=== PATIENT | male | born 1970 ===

== ENCOUNTER 2019-12-27 10:48 | Emergency (ER) | payer MEDICAID ==
[~2019-12-27] VITALS: Ht 167.6 cm; Wt 62.3 kg
[2019-12-27 11:34] LABS: GLUCOSE,POINT OF CARE 84 MG/DL (70-110)
[2019-12-27 11:38] VITALS: BP 106/66
== END 2019-12-27 12:10 | disposition home or self-care (01) ==
LOC: EMS 10:49
DX: G89.29 Other chronic pain (principal); M25.512 Pain in left shoulder; E11.9 Type 2 diabetes mellitus without complications; F20.9 Schizophrenia, unspecified; F17.210 Nicotine dependence, cigarettes, uncomplicated